=== PATIENT | female | born 1945 | race Caucasian/White ===

== ENCOUNTER 2020-11-11 12:56 | Outpatient (CLI) | payer MEDICARE, OTHER, SELFPAY ==
--- NOTE | ~2020-11-11 | DEXA_ITS ---
Bone Density Report Name: Flory Ying Age: 75 Sex: Female Ethnicity: White Date of : 1945 Indication: osteopenia; monitoring treatment; height loss; Referring Provider: Carmen Bland Study: Bone densitometry was performed. Exam Date: November 11, 2020 Accession number: [id number] Bone Density: Region BMD T-score Z-score Classification AP Spine (L1-L4) 1.154 1.0 3.3 Normal Femoral Neck (Left) 0.759 -0.8 1.2 Normal Total Hip (Left) 0.723 -1.8 0.0 Osteopenia Total Hip Bilateral Avg 0.746 -1.6 0.2 Osteopenia Femoral Neck (Right) 0.692 -1.4 0.6 Osteopenia Total Hip (Right) 0.767 -1.4 0.3 Osteopenia World Health Organization criteria for BMD impression classify patients as: Normal (T-score at or above -1.0), Osteopenia (T-score between -1.0 and -2.5), or Osteoporosis (T-score at or below -2.5). 10-year Fracture Risk: FRAX not reported because: Treated for osteoporosis Previous Exams: Region Exam Age BMD T-score BMD Change BMD Change Date g/cm2 vs Baseline vs Previous AP Spine(L1-L4) 11/11/2020 75 1.154 1.0 0.153(15.3%)# 0.272(30.8%)* 01/02/2015 69 0.882 -1.5 -0.119(-11.9%) -0.132(-13.0%) 10/11/2012 67 1.014 -0.3 0.013(1.3%)# -0.032(-3.1%)# 08/01/2010 65 1.047 0.0 0.046(4.6%)* 0.075(7.7%)* 06/29/2008 63 0.972 -0.7 -0.029(-2.9%)* 0.019(1.9%) 06/11/2006 61 0.954 -0.8 -0.048(-4.8%)* -0.048(-4.8%)* 04/25/2004 59 1.001 -0.4 Total Hip(Left) 11/11/2020 75 0.723 -1.8 -0.103(-12.5%) -0.014(-1.9%)# 01/02/2015 69 0.737 -1.7 -0.089(-10.8%) 0.028(3.9%)# 10/11/2012 67 0.709 -1.9 -0.117(-14.2%) -0.074(-9.4%)# 08/01/2010 65 0.783 -1.3 -0.043(-5.3%)* -0.011(-1.4%) 06/29/2008 63 0.794 -1.2 -0.033(-3.9%)* 0.002(0.3%) 06/11/2006 61 0.792 -1.2 -0.035(-4.2%)* -0.035(-4.2%)* 04/25/2004 59 0.826 -0.9 Total Hip(Right) 11/11/2020 75 0.767 -1.4 -0.099(-11.4%) -0.045(-5.6%)* 01/02/2015 69 0.812 -1.1 -0.054(-6.2%)# 0.013(1.6%)# 10/11/2012 67 0.800 -1.2 -0.067(-7.7%)# -0.005(-0.6%)# 08/01/2010 65 0.805 -1.1 -0.061(-7.1%)* -0.009(-1.2%) 06/29/2008 63 0.814 -1.0 -0.052(-6.0%)* -0.002(-0.3%) 06/11/2006 61 0.817 -1.0 -0.049(-5.7%)* -0.049(-5.7%)* 04/25/2004 59 0.866 -0.6 *Denotes significance at 95% confidence level, LSC for AP Spine = 0.022 g/cm2, LSC for Total Hip = 0.027 g/cm2 Clinical Information Provided by Patient: Is being treated for osteoporosis Has used the following medi
== END 2020-11-11 12:57 | disposition home or self-care (01) ==
PROVIDERS: PCP Family Medicine; Visit Provider Student in an Organized Health Care Education/Training Program
DX: M85.852 Other specified disorders of bone density and structure, left thigh (principal); M85.851 Other specified disorders of bone density and structure, right thigh
CPT/HCPCS: 77080

== ENCOUNTER 2021-01-21 02:37 | Day surgery (SDC) | payer MEDICARE, OTHER, SELFPAY ==
[2021-01-07 14:14] VITALS: BMI 37.4
--- NOTE | 2021-01-20 11:37 | PM.HPGS ---
History of Present Illness History of Present Illness Consent: Risks, benefits, and alternatives have been discussed and questions answered. Patient agrees to proceed with procedure. Chief complaint: hx of colon polyps Narrative: Flory Ying is a 75 year old female who is here for colon cancer screening. She had a polyp removed about 5 years ago Review of Systems Review of Systems: All systems reviewed & are unremarkable except as noted in HPI and below PMFSH Past Medical History Medical History Gout H/O Mohs micrographic surgery for skin cancer History of vaginal delivery Hypertension Migraine Osteopenia Skin cancer Surgical History Surgical History History of dilation and curettage History of knee replacement History of tubal ligation [place] teeth removed Family History Family History Sibling Family history of gastrointestinal disorder Patient's brother is in good health Father Family history of lung cancer Grandparent Family history of malignant neoplasm of breast in first degree relative Family history of malignant neoplasm of urinary bladder Mother Hypertension, Onset Age: 88 Patient's mother is , Onset Age: 88 Family history of malignant neoplasm of breast in first degree relative Social History Social History Smoking status: Never smoker Second hand tobacco smoke exposure: No Alcohol intake: never Substance use: never Substance use type: does not use Living arrangements: with family Gender identity (if verbalized by the patient): Female Spiritual care concerns: No Agree to blood products: Yes Meds Home Medications and Allergies Home Medications Medication Instructions Recorded Confirmed Type allopurinol 300 mg tablet 300 mg PO DAILY #90 tablet 12/09/20 01/07/21 Rx calcium citrate 315 mg 1 tablet PO BID 12/09/20 01/07/21 History calcium-vitamin D3 6.25 mcg (250 unit) tablet losartan 100 1 tablet PO DAILY #90 tablet 12/09/20 01/07/21 Rx mg-hydrochlorothiazide 12.5 mg tablet metoprolol succinate 100 mg 100 mg PO DAILY #90 tablet 12/09/20 01/07/21 Rx tablet,extended release 24 hr Allergies Allergy/AdvReac Type Severity Reaction Status Date / Time codeine Allergy Unknown Unknown Verified 01/21/21 07:46 Exam Resp: Auscultation: clear to auscultation bilaterally Cardio: Rate: regular rate Rhythm: regular rhythm GI: GI Palp: Yes Soft to palpation and No Tenderness to palpation present (GI) Assessment and Plan Assessment and plan (1) Colon cancer screening: Code(s): Z12.11 - Encounter for screening for malignant neoplasm of colon Status: Acute Assessment and Plan: Colonoscopy with possible biopsy or polypectomy or cautery or injection of substances.
--- NOTE | 2021-01-20 12:11 | WPDANESEPPF ---
Anes - Initial Pre Proc Eval Procedure: Operation Date: 01/21/21 08:30 Proposed Procedures p Screening Colonoscopy - Milo Herman MD Date/Time: 01/20/21 12:11 Surgeon: Milo Herman MD Pre Op Diagnosis: hx of colon polyps Patient Data Age: 75 Gender: F Height: 1.65 m Weight: 102 kg Allergies Allergy/AdvReac Type Severity Reaction Status Date / Time codeine Allergy Unknown Unknown Verified 01/21/21 07:46 Home Medications Medication Instructions Recorded Confirmed Type allopurinol 300 mg tablet 300 mg PO DAILY #90 tablet 12/09/20 01/07/21 Rx calcium citrate 315 mg 1 tablet PO BID 12/09/20 01/07/21 History calcium-vitamin D3 6.25 mcg (250 unit) tablet losartan 100 1 tablet PO DAILY #90 tablet 12/09/20 01/07/21 Rx mg-hydrochlorothiazide 12.5 mg tablet metoprolol succinate 100 mg 100 mg PO DAILY #90 tablet 12/09/20 01/07/21 Rx tablet,extended release 24 hr Patient hx anesthesia problems: none Family hx anesthesia problems: none Results Review: All pre-operative results and documents have been reviewed as part of the pre-operative evaluation. [facility] Past Medical History Medical History (Updated 01/20/21 @ 11:38 by Milo Herman MD) Gout H/O Mohs micrographic surgery for skin cancer History of vaginal delivery Hypertension Migraine Osteopenia Skin cancer Surgical History Surgical History History of dilation and curettage History of knee replacement History of tubal ligation [place] teeth removed Family History Family History Sibling Family history of gastrointestinal disorder Patient's brother is in good health Father Family history of lung cancer Grandparent Family history of malignant neoplasm of breast in first degree relative Family history of malignant neoplasm of urinary bladder Mother Hypertension, Onset Age: 88 Patient's mother is , Onset Age: 88 Family history of malignant neoplasm of breast in first degree relative Social History Social History (Reviewed 12/09/20 @ 10:29 by Fidelina Lindquist [facility]) Smoking status: Never smoker Second hand tobacco smoke exposure: No Alcohol intake: never Substance use: never Substance use type: does not use Living arrangements: with family Gender identity (if verbalized by the patient): Female Spiritual care concerns: No Agree to blood products: Yes Anes - Eval Final PreProcedure Day of Procedure 01/20/21 12:11 Patient weight: obese Heart: regular rate and rhythm Lungs: clear to auscultation and normal air movement Airway: Mallampati scale class II Neurological: alert and oriented Last oral intake: >/= 8 hours ASA classification: III Emergent: no Anesthetic plan: proceed Anesthesia type and monitoring: general GIVS and standard monitoring Results Review: All pre-operative results and documents have been reviewed as part of the pre-operative evaluation. Informed Consent: The patient's anesthetic plan and its attendant risks and benefits were discussed with the patient/family/POA. Questions were solicited and answers provided to the satisfaction of the patient/family/POA.
[2021-01-21 07:48] VITALS: BP 149/69; PULSE 85; RESP 18; TEMP 36.5; O2SAT 97
[2021-01-21] MEDS: LACTATED RINGERS 1,000 ML 150 ML IV CONT (08:19)
[2021-01-21 08:51] VITALS: BP 129/87; PULSE 57; RESP 21; O2SAT 100
[2021-01-21 09:01] VITALS: BP 124/59; PULSE 71; RESP 21; O2SAT 99
[2021-01-21 09:11] VITALS: BP 122/63; PULSE 69; RESP 19; O2SAT 99
== END 2021-01-21 09:34 | disposition home or self-care (01) ==
PROVIDERS: PCP Family Medicine; Visit Provider Internal Medicine Gastroenterology
PROC: 0DJD8ZZ Inspection of Lower Intestinal Tract, Via Natural or Artificial Opening Endoscopic (ICD-10-PCS; CPT 45378; principal; 2021-01-21 08:30)
DX: Z12.11 Encounter for screening for malignant neoplasm of colon (principal); D12.2 Benign neoplasm of ascending colon; K57.30 Diverticulosis of large intestine without perforation or abscess without bleeding; I10 Essential (primary) hypertension; M10.9 Gout, unspecified; M85.80 Other specified disorders of bone density and structure, unspecified site; E66.9 Obesity, unspecified; Z68.36 Body mass index [BMI] 36.0-36.9, adult
CPT/HCPCS: 45380; 88305; J2704; J7120

== ENCOUNTER 2022-11-15 09:28 | Outpatient (CLI) | payer MEDICARE, SELFPAY ==
--- NOTE | ~2022-11-15 | DEXA_ITS ---
Bone Density Report Name: JAN VASQUEZ Age: 77 Sex: Female Ethnicity: White Date of : 1945 Indication: osteopenia; height loss; postmenopausal Referring Provider: MIGEL BULLOCK Study: Bone densitometry was performed. Exam Date: November 15, 2022 Accession number: [id number] Bone Density: Region BMD T-score Z-score Classification AP Spine(L1, L2) 1.055 0.7 3.0 Normal Femoral Neck (Left) 0.676 -1.6 0.6 Osteopenia Total Hip (Left) 0.764 -1.5 0.4 Osteopenia Femoral Neck (Right) 0.719 -1.2 1.0 Osteopenia Total Hip (Right) 0.770 -1.4 0.5 Osteopenia Total Hip Mean 0.767 -1.5 0.5 Osteopenia World Health Organization criteria for BMD impression classify patients as: Normal (T-score at or above -1.0), Osteopenia (T-score between -1.0 and -2.5), or Osteoporosis (T-score at or below -2.5). 10-year Fracture Risk(1): Major Osteoporotic Fracture 11% Hip Fracture 2.2% Reported Risk Factors: [place] (), Neck BMD=0.676, BMI=37.2 (1) FRAX(R) Version 3.08. Fracture probability calculated for an untreated patient. Fracture probability may be lower if the patient has received treatment. Previous Exams: Region Exam Age BMD T-score BMD Change BMD Change Date g/cm2 vs Baseline vs Previous AP Spine (L1-L2) 11/15/2022 77 1.055 0.7 0.149 (16.5%)# 0.043 (4.2%)* 11/11/2020 75 1.013 0.3 0.107 (11.8%)# 0.213 (26.6%)* 01/02/2015 69 0.800 -1.6 -0.106 (-11.7% -0.106 (-11.7% 10/11/2012 67 0.906 -0.7 Total Hip(Left) 11/15/2022 77 0.764 -1.5 0.055 (7.8%)# 0.041 (5.7%)* 11/11/2020 75 0.723 -1.8 0.014 (2.0%)# -0.014 (-1.9%) 01/02/2015 69 0.737 -1.7 0.028 (3.9%)# 0.028 (3.9%)# 10/11/2012 67 0.709 -1.9 Total Hip(Right) 11/15/2022 77 0.770 -1.4 -0.030 (-3.7%) 0.003 (0.4%) 11/11/2020 75 0.767 -1.4 -0.033 (-4.1%) -0.045 (-5.6%) 01/02/2015 69 0.812 -1.1 0.013 (1.6%)# 0.013 (1.6%)# 10/11/2012 67 0.800 -1.2 *Denotes significance at 95% confidence level, LSC for AP Spine = 0.022 g/cm2, LSC for Total Hip = 0.027 g/cm2 # Denotes dissimilar scan types or analysis methods Clinical Information Provided by Patient: Has used the following medications: Calcium Patient maximum height was 66 Menopause Age: 50 No regular weight bearing exercise Onset of menses at age 12 Number of children 4 Impression: The patient has low bone mass, based on the Left Femoral
== END 2022-11-15 09:29 | disposition home or self-care (01) ==
LOC: ANHIMG 09:29
PROVIDERS: PCP Family Medicine; Visit Provider Registered Nurse
DX: Z78.0 Asymptomatic menopausal state (principal); M85.88 Other specified disorders of bone density and structure, other site; M85.852 Other specified disorders of bone density and structure, left thigh; M85.851 Other specified disorders of bone density and structure, right thigh
CPT/HCPCS: 77080